=== PATIENT | male | born 1975 | race Caucasian/White ===

== ENCOUNTER 2019-11-14 10:25 | Emergency (ER) | payer MEDICAID ==
[~2019-11-14] VITALS: Ht 185.4 cm; Wt 136.0 kg
[2019-11-14 10:33] VITALS: BP 125/86
--- NOTE | 2019-11-14 10:51 | NUR ---
pt has a small old wound on the ball of foot does nto remember where it came from around that old woud the skin is excorated and open in three areas state that the pain is getting wrose not better
[2019-11-14] MEDS ORDERED: vancomycin/NS 1 GM ADD-VANTAGE 250 ML IV ONE (11:40)
[2019-11-14] MEDS ORDERED: CefTRIAXone 2gm/D5W 50ml 50 ML IV ONE (11:40)
[2019-11-14] MEDS ORDERED: ondansetron/PF 4mg/2ml inj IV ONE (11:40)
[2019-11-14] MEDS ORDERED: morphine 4 MG/ML inj SYRINge IV ONE (11:40)
[2019-11-14 12:12] LABS: BASOPHILS # (AUTO) 0.1 X10'3 (0-0.2); BASOPHILS % (AUTO) 1.2 % (0-1); EOSINOPHILS # (AUTO) 0.2 X10'3 (0-0.9); EOSINOPHILS % (AUTO) 1.9 % (0-6); HEMATOCRIT 44.2 % (42.0-52.0); HEMOGLOBIN 15.2 g/dl (14.0-17.9); LYMPHOCYTES # (AUTO) 1.7 X10'3 (1.1-4.8); LYMPHOCYTES % (AUTO) 16.2 % (21-51); MEAN CORPUSCULAR HEMOGLOBIN 28.8 PG (27.0-31.0); MEAN CORPUSCULAR HGB CONC 34.4 g/dL (33.0-36.5); MEAN CORPUSCULAR VOLUME 83.6 FL (78-98); MEAN PLATELET VOLUME 8.6 FL (7.4-10.4); MONOCYTES # (AUTO) 1.4 X10'3 (0-0.9); MONOCYTES % (AUTO) 13.3 % (2-12); NEUTROPHILS # (AUTO) 6.9 X10'3 (1.8-7.7); NEUTROPHILS % (AUTO) 67.4 % (42-75); PLATELET COUNT 258 X10'3 (140-440); RED BLOOD COUNT 5.29 X10'6 (4.70-6.10); RED CELL DISTRIBUTION WIDTH 14.3 % (11.5-14.5); WHITE BLOOD COUNT 10.3 X10'3 (4.5-11.0)
[2019-11-14 12:26] LABS: ALANINE AMINOTRANSFERASE 26 U/L (12-78); ALBUMIN 3.7 G/DL (3.4-5.0); ALBUMIN/GLOBULIN RATIO 0.8 (1.1-1.5); ALKALINE PHOSPHATASE 90 IU/L (46-116); ANION GAP 9 (8-16); ASPARTATE AMINO TRANSFERASE 16 U/L (10-37); BILIRUBIN,TOTAL 0.4 MG/DL (0.1-1.0); BLOOD UREA NITROGEN 15 MG/DL (7-18); BUN/CREATININE RATIO 10.7 (5.4-32.0); CALCIUM 9.9 MG/DL (8.5-10.1); CHLORIDE 101 MMOL/L (99-107); GLUCOSE 107 MG/DL (70-104); POTASSIUM 3.5 MMOL/L (3.5-5.1); SODIUM 137 MMOL/L (135-145); TOTAL PROTEIN 8.2 G/DL (6.4-8.2); eGFR 55 ML/MIN
[2019-11-14] MEDS ORDERED: SULF1TAB49 PO (12:28)
[2019-11-14] MEDS ORDERED: ONDA4TAB6 PO (12:28)
[2019-11-14] MEDS ORDERED: CEPH-572 PO (12:28)
[2019-11-14] MEDS ORDERED: HYDR-3965 PO (12:28)
== END 2019-11-14 14:41 | disposition home or self-care (01) ==
LOC: ER 10:26
DX: L03.115 Cellulitis of right lower limb (principal)
CPT/HCPCS: 36415; 73630; 80053; 83605; 83735; 84145; 85025; 87040; 87070; 87077; 87186; 96365; 96366; 96368; 96375; 99284; J0696; J2270; J2405; J3370